=== PATIENT | female | born 1965 | race African-American/Black ===

== ENCOUNTER → 2017-02-11 | Outpatient (CLI) | payer OTHER ==
[~2017-02-11] MED LIST: CELE100C79 PO; CYCL32DR2 OP; FISH1CAP29 PO; MULT-488 PO
== END ==
LOC: LABN 14:34
PROVIDERS: ATTEND Physician Assistant
DX: N92.6 Irregular menstruation, unspecified (principal)
CPT/HCPCS: 82530; 82627; 82670; 84144; 84402

== ENCOUNTER → 2017-03-07 | Outpatient (CLI) | payer OTHER | LOC: WC.BC 07:46 | DX: Z12.31 Encounter for screening mammogram for malignant neoplasm of breast (principal) | CPT/HCPCS: 77063; G0202 ==